=== PATIENT | female | born 1990 | race Caucasian/White ===

== ENCOUNTER 2017-05-31 07:48 | Day surgery (SDC) | payer BC ==
[2017-05-31] MEDS ORDERED: LR 1,000 ML IV ONE (07:55)
[2017-05-31] MEDS ORDERED: PROPOFOL/EMULSION 500 MG/50 ML BOTTLE IV ONE (09:07)
[2017-05-31] MEDS ORDERED: PROPOFOL 200 MG/20 ML VIAL ONE (09:12)
[2017-05-31] MEDS ORDERED: NALOXONE HCL 0.4 MG/ML INJ IVP PRN (09:16)
[2017-05-31] MEDS ORDERED: DEXAMETHASONE 4 MG/ML VIAL IVP PRN (09:16)
[2017-05-31] MEDS ORDERED: fentaNYL 100 MCG/2 ML INJ IVP PRN (09:16)
[2017-05-31] MEDS ORDERED: ALBUTEROL 3 ML DEYVIAL IH PRN (09:16)
[2017-05-31] MEDS ORDERED: ONDANSETRON 4 MG/2 ML VIAL IVP PRN (09:16)
--- NOTE | 2017-05-31 09:18 | PDANEPAE ---
ANE History of Present Illness Colonoscopy ANE Past Medical History - Cardiovascular History Hx Hypertension: No Hx Arrhythmias: No Hx Chest Pain: No Hx Coronary Artery / Peripheral Vascular Disease: No Hx CHF / Valvular Disease: No Hx Palpitations: No - Pulmonary History Hx COPD: No Hx Asthma/Reactive Airway Disease: Yes Hx Recent Upper Respiratory Infection: No Hx Oxygen in Use at Home: No Hx Sleep Apnea: No Sleep Apnea Screening Result - Last Documented: Negative - Neurologic History Hx Cerebrovascular Accident: No Hx Seizures: No Hx Dementia: No - Endocrine History Hx Diabetes: No - Renal History Hx Renal Disorders: No - Liver History Hx Hepatic Disorders: No - Neurological & Psychiatric Hx Hx Neurological and Psychiatric Disorders: Yes Neurological / Psychiatric History Comment: severe anxiety - Cancer History Hx Cancer: No - Congenital Disorder History Hx Congenital Disorders: No - GI History Hx Gastrointestinal Disorders: Yes Gastrointestinal History Comment: diarrhea,cramping - Other Health History Other Health History: none - Chronic Pain History Chronic Pain: No - Surgical History Prior Surgeries: cervical biopsy ANE Review of Systems Review of Systems: - Exercise capacity METS (RN): 4 METS ANE Patient History - Allergies Allergies/Adverse Reactions: No Known Allergies Allergy (Unverified 12/30/13 10:01) - Home Medications Home Medications: Albuterol [Proventil Inhaler HFA (*)] 05/30/17 [Last Taken Unknown] Xanax 05/30/17 [Last Taken 05/24/17] busPIRone 05/30/17 [Last Taken 05/24/17] valACYclovir 05/31/17 [Last Taken 05/30/17 08:00] - NPO status NPO Since - Liquids (Date): 05/30/17 NPO Since - Liquids (Time): 20:00 NPO Since - Solids (Date): 05/29/17 NPO Since - Solids (Time): 21:00 - Smoking Hx Smoking Status: Heavy smoker - Family Anes Hx Family Hx Anesthesia Complications: none ANE Labs/Vital Signs - Vital Signs Blood Pressure: 133/93 Heart Rate: 109 Respiratory Rate: 18 O2 Sat (%): 94 Height: 165.1 cm Weight: 127.006 kg ANE Physical Exam - Airway Neck exam: FROM Mallampati Score: Class 2 - Pulmonary Pulmonary: clear to auscultation - Cardiovascular Cardiovascular: regular rate and rhythym - ASA Status ASA Status: II ANE Anesthesia Plan Anesthesia Plan: GA with mask
--- NOTE | 2017-05-31 09:40 | POSTANESTH ---
Post Anesthetic Evaluation Cardiovascular Status: Normal, Stable Respiratory Status: Normal, Stable Level of Consciousness/Mental Status: Mildly Sleepy, Arousable Pain Control: Adequate, Prn Tx Ordered Nausea/Vomiting Control: Adequate, Prn Tx Ordered Complications Possibly Related to Anesthesia: None Noted
[2017-05-31] MEDS ORDERED: INDOMETHACIN 50 MG SUPP PR PRN (10:05)
--- NOTE | 2017-05-31 10:05 | PDGENHP ---
History & Physical Chief Complaint: diarrhea/cramping History of Present Illness: 26 year old female with asthma, anxiety presents for lower abdominal cramping and diarrhea. Pertinent Past, Social, Family History: PMHx: anxiety, asthma. pSurgHx: None Relevant Physical Exam: HEENT: anicteric. CV: RRR +S1S2. lUNGS: ctab. aBD: SOFT, NT + BS/. nO G/R/ Cardiorespiratory Assessment: asa 2. mALL 2
[2017-05-31] MEDS ORDERED: fentaNYL 100 MCG/2 ML INJ ONE (10:07)
[2017-05-31] MEDS ORDERED: NS 500 ML IV SCH (10:15)
--- NOTE | 2017-05-31 10:16 | GIREPORT ---
Formerly [facility] - Endoscopy Department Patient Name: Cynthia Fay Procedure Date: 05/31/2017 8:23 AM Patient Type: Outpatient Attending MD/ ER Physician: Jonatan Johnson MD Procedure: Colonoscopy Indications: Lower abdominal pain, Clinically significant diarrhea of unexplained or igin Patient Profile: 26 year old female presents for evaluation of lower quadrant abdominal pain and diarrhea. Providers: Jonatan Johnson MD Medicines: Monitored Anesthesia Care Complications: No immediate complications. Estimated blood loss: Minimal. Description of Procedure: After obtaining informed consent, the scope was passed under direct vis ion. Throughout the procedure, the patient's blood pressure, pulse, and oxyg en saturations were monitored continuously. The Colonoscope with irrigatio n channel was introduced through the anus and advanced to the terminal il eum. The colonoscopy was performed without difficulty. The patient tolerated the procedure well. The quality of the bowel preparation was good. The term inal ileum, ileocecal valve, appendiceal orifice, and rectum were photograph ed. Findings: The perianal and digital rectal examinations were normal. Pertinent negatives include no palpable rectal lesions. The terminal ileum appeared normal. Biopsies were taken with a cold for ceps for histology. The colon (entire examined portion) appeared normal. Biopsies for histo logy were taken with a cold forceps for evaluation of microscopic colitis. Estimated Blood Loss: Estimated blood loss was minimal. Post Op Diagnosis: - The examined portion of the ileum was normal. Biopsied. - The entire examined colon is normal. Biopsied. - Etiology? Suspect functional? Await biopsy results. Recommendation: - Discharge patient to home (with escort). - Resume previous diet. - Continue present medications. - Repeat colonoscopy at age 52 for screening purposes. - Await pathology results. - Return to GI office in 6 weeks. - Use Bentyl (dicyclomine) 20 mg PO BID 30 min AC. - Thank you for allowing me to particpate in the care of your patient. Attending Participation: I personally performed the entire procedure. Jonatan Johnson MD Jonatan Johnson MD 05/31/2017 10:16:04 AM This report has been signed electronicallyJonatan Johnson MD Number of Addenda: 0 Note Initiated On: 05/31/2017 8:23 AM Total Procedure Duration Time 0 hours 14 minutes 31 seconds [email or web address]
[2017-05-31] MEDS ORDERED: ONDANSETRON 4 MG/2 ML VIAL ONE (10:23)
[2017-05-31 10:37] VITALS: TEMP 98.2
[2017-05-31 10:38] VITALS: BP 123/74; RESP 15; O2SAT 95
[2017-05-31 11:10] VITALS: PULSE 90
== END 2017-05-31 11:26 | disposition home or self-care (01) ==
LOC: FSGY 07:48
PROVIDERS: ATTEND Internal Medicine Gastroenterology
PROC: 0DBE8ZX Excision of Large Intestine, Via Natural or Artificial Opening Endoscopic, Diagnostic (ICD-10-PCS; principal; 2017-05-31 09:00)
PROC: 0DBB4ZX Excision of Ileum, Percutaneous Endoscopic Approach, Diagnostic (ICD-10-PCS; principal; 2017-05-31 09:00)
DX: K63.5 Polyp of colon (principal)
CPT/HCPCS: J2405; J2704; J3010

== ENCOUNTER → 2018-02-19 | Outpatient (CLI) | payer OTHER | LOC: FIMAGING 12:17 | PROVIDERS: ATTEND Surgery | DX: R16.0 Hepatomegaly, not elsewhere classified (principal) ==

== ENCOUNTER 2018-02-21 05:47 | Day surgery (SDC) | payer OTHER ==
--- NOTE | 2018-02-20 22:19 | PDANEPAE ---
ANE History of Present Illness diagnostic laparoscopic, umbilical hernia repair ANE Past Medical History - Cardiovascular History Hx Hypertension: No Hx Arrhythmias: No Hx Chest Pain: No Hx Coronary Artery / Peripheral Vascular Disease: No Hx CHF / Valvular Disease: No Hx Palpitations: No - Pulmonary History Hx COPD: No Hx Asthma/Reactive Airway Disease: Yes Hx Recent Upper Respiratory Infection: No Hx Oxygen in Use at Home: No Hx Sleep Apnea: No Sleep Apnea Screening Result - Last Documented: Negative Pulmonary History Comment: asthma. quit smoking "about 3 months ago" - Neurologic History Hx Cerebrovascular Accident: No Hx Seizures: No Hx Dementia: No - Endocrine History Hx Diabetes: No Hypothyroid: No Hyperthyroid: No Obesity: severe - Renal History Hx Renal Disorders: No - Liver History Hx Hepatic Disorders: No - Neurological & Psychiatric Hx Hx Neurological and Psychiatric Disorders: Yes Neurological / Psychiatric History Comment: severe anxiety - Cancer History Hx Cancer: No - Congenital Disorder History Hx Congenital Disorders: No - GI History GERD: no Hx Gastrointestinal Disorders: Yes Gastrointestinal History Comment: diarrhea, cramping - Other Health History Other Health History: wears glasses - Chronic Pain History Chronic Pain: No - Surgical History Prior Surgeries: cervical biopsy. colonoscopy ANE Review of Systems Review of Systems: - Exercise capacity METS (RN): 4 METS ANE Patient History - Allergies Allergies/Adverse Reactions: No Known Allergies Allergy (Verified 02/20/18 13:05) - Home Medications Home Medications: Albuterol [Proventil Inhaler HFA (*)] 05/30/17 [Last Taken Unknown] valACYclovir DAILY 05/31/17 [Last Taken 05/30/17 08:00] Xanax PRN PRN 02/20/18 [Last Taken Unknown] - Anes Hx Anes Hx: no prior problems - Smoking Hx Smoking Status: Former smoker Marijuana use: No - Alcohol Use Alcohol Use: Rarely - Family Anes Hx Family Anes Hx: none Family Hx Anesthesia Complications: none ANE Labs/Vital Signs - Vital Signs Height: 165.1 cm Weight: 120.202 kg ANE Physical Exam - Airway Neck exam: FROM Mallampati Score: Class 2 Mouth exam: normal dental/mouth exam - Pulmonary Pulmonary: clear to auscultation - Cardiovascular Cardiovascular: regular rate and rhythym - ASA Status ASA Status: II ANE Anesthesia Plan Anesthesia Plan: general endotracheal anesthesia
[2018-02-21] MEDS ORDERED: LR 1,000 ML IV ONE (06:04)
[2018-02-21] MEDS ORDERED: LIDOCAINE 1% 2 ML INJ ID PRN (06:04)
[2018-02-21] MEDS ORDERED: ceFAZolin 2 GM/DEXTROSE 100 ML IV ONE (06:04)
[2018-02-21] MEDS ORDERED: SCOPOLAMINE HYDROBROMIDE 1 MG/3 DAYS PATCH TD ONE (06:57)
[2018-02-21] MEDS ORDERED: MIDAZOLAM 2 MG/2 ML VIAL IVP ONE (06:57)
[2018-02-21] MEDS ORDERED: HEPARIN 1000 UNIT/1 ML MDV ONE (06:59)
[2018-02-21] MEDS ORDERED: BUPIVACAINE 0.5% 30 ML SDV ONE ×2 (06:59→07:28)
[2018-02-21] MEDS ORDERED: ceFAZolin 1 GM/5 ML SYR ONE (06:59)
[2018-02-21] MEDS ORDERED: DEXAMETHASONE 4 MG/ML VIAL ONE ×2 (07:03→07:04)
[2018-02-21] MEDS ORDERED: REMIFENTANIL HCL 1 MG VIAL ONE (07:03)
[2018-02-21] MEDS ORDERED: PROPOFOL/EMULSION 500 MG/50 ML BOTTLE IV ONE (07:03)
[2018-02-21] MEDS ORDERED: ROCURONIUM 50 MG/5 ML VIAL ONE (07:03)
--- NOTE | 2018-02-21 07:06 | PDHPUP ---
History & Physical Update H&P update statement: This history and physical update is based on an assessment of the patient which was completed after admission or registration (within 24 hours), but prior to the surgery/procedure. H&P update: H&P reviewed & patient examined, no change in patient's condition since H&P completed
[2018-02-21] MEDS ORDERED: fentaNYL 100 MCG/2 ML INJ ONE ×2 (07:07→08:24)
[2018-02-21] MEDS ORDERED: ONDANSETRON 4 MG/2 ML VIAL ONE (07:49)
[2018-02-21] MEDS ORDERED: KETOROLAC 30 MG/1 ML SDV ONE (07:57)
[2018-02-21] MEDS ORDERED: SUGAMMADEX SODIUM 200 MG/2 ML VIAL IVP ONE ×2 (08:01)
[2018-02-21] MEDS ORDERED: ONDANSETRON 4 MG/2 ML VIAL IVP PRN (08:06)
[2018-02-21] MEDS ORDERED: oxyCODONE IR 5 MG TAB PO PRN (08:06)
[2018-02-21] MEDS ORDERED: NALOXONE HCL 0.4 MG/ML INJ IVP PRN (08:06)
[2018-02-21] MEDS ORDERED: ACETAMINOPHEN 500 MG TAB PO PRN (08:06)
[2018-02-21] MEDS ORDERED: ALBUTEROL 3 ML DEYVIAL IH PRN (08:06)
[2018-02-21] MEDS ORDERED: HYDROCODONE/APAP 5/325 TAB PO PRN (08:06)
--- NOTE | 2018-02-21 08:13 | POSTOPPROG ---
Post Op Note Date of Operation: 02/21/18 Surgeon: Chano Cerda Extractor Machine Operator: Tian Anesthesiologist: Kim Anesthesia: GET(General Endotracheal) Pre-op Diagnosis: Abdominal pain, umbilical hernia Post-op Diagnosis: same Indication: same Procedure: Diagnostic lap, open umbilical hernia repair Findings: Normal ovaries, appendix, gallbladder. Very small umbilical defect Inf/Abcess present in the surg proc area at time of surgery?: No Depth: Organ Space EBL: Minimal Specimen(s): Umbilical hernia sac- permanent
[2018-02-21] MEDS: fentaNYL 100 MCG/2 ML INJ IVP PRN ×2 (08:26→08:46)
--- NOTE | 2018-02-21 08:50 | POSTANESTH ---
Post Anesthetic Evaluation Cardiovascular Status: Normal, Stable Respiratory Status: Normal, Stable Level of Consciousness/Mental Status: Can Participate in Eval Pain Control: Adequate, Prn Tx Ordered Nausea/Vomiting Control: Adequate, Prn Tx Ordered Complications Possibly Related to Anesthesia: None Noted
[2018-02-21 10:00] VITALS: BP 102/65
[2018-02-21] MEDS ORDERED: HYDROCODONE/APAP 5/325 TAB ONE (10:05)
--- NOTE | 2018-02-21 17:09 | GOP ---
DATE OF OPERATION: 02/21/2018 SURGEON: Chano Cerda MD PREOPERATIVE DIAGNOSIS: Small umbilical hernia. POSTOPERATIVE DIAGNOSIS: Small umbilical hernia. PROCEDURE PERFORMED: Open umbilical hernia repair and diagnostic laparoscopy. FINDINGS: SMALL 5 MM UMBILICAL HERNIA DEFECT, NO INTRA-ABDOMINAL ABNORMALITIES INDICATIONS: The patient had tremendous pain after lifting at work and was noted to have a small new umbilical hernia. There were no other major findings , but the pain was significant and it was thought appropriate to look for other etiologies. DESCRIPTION OF PROCEDURE: Patient was taken to the operating room where she received satisfactory general endotracheal anesthesia by Dr. Overton. She was placed in supine position, prepped and draped in usual sterile fashion. Infraumbilical incision was made and carried down through subcutaneous tissue. Hemostasis was obtained. The umbilical skin was dissected away. The small umbilical defect was identified. Its contents were reduced. The defect was then closed with 0 Surgilon [id number] sutures. Wound was infiltrated with 0.50% Marcaine. Subcu was closed with 3-0 Vicryl, skin with a 4-0 Monocryl subcuticular stitch. Prior to that closure, a Veress needle had been inserted through the umbilical defect and pneumoperitoneum was established. A 5 mm trocar was introduced. Laparoscope introduced. Good visualization was obtained. The abdomen was visually explored. The tubes and ovaries were essentially normal. Appendix was normal. Gallbladder appeared to be normal, and the small bowel, other than having marked peristalsis and spasticity was normal in appearance, as was the colon. No other trocars were placed in the abdomen to manipulate tissue, however. Trocars were removed and the above dictated repair was done. She tolerated procedure well. She was taken to the recovery room in good condition. There were no complications. Blood loss negligible. /[id number]/MODL MTDD
== END 2018-02-21 10:40 | disposition home or self-care (01) ==
LOC: FSGY 05:47
PROVIDERS: ATTEND Surgery
DX: K42.9 Umbilical hernia without obstruction or gangrene (principal); J45.909 Unspecified asthma, uncomplicated; F41.9 Anxiety disorder, unspecified; Z87.891 Personal history of nicotine dependence
CPT/HCPCS: J0690; J1100; J1885; J2250; J2405; J2704; J3010